=== PATIENT | male | born 1975 | race Hispanic/Latino ===

== ENCOUNTER 2020-09-29 16:32 | Emergency (ER) | payer OTHER ==
[~2020-09-29] VITALS: Ht 170.2 cm; Wt 72.6 kg
[2020-09-29] MEDS ORDERED: HYDROXYZINE HCL25 MG PO (16:49)
[2020-09-29] MEDS ORDERED: OMEPRAZOLE20 MG PO (16:50)
== END 2020-09-29 19:18 | disposition home or self-care (01) ==
LOC: ED 16:32
DX: R10.11 Right upper quadrant pain (principal); K21.9 Gastro-esophageal reflux disease without esophagitis; Z87.891 Personal history of nicotine dependence; Z88.5 Allergy status to narcotic agent; Z79.899 Other long term (current) drug therapy
CPT/HCPCS: 74177; 76705; 80053; 81001; 83690; 85025; 99284-25

== ENCOUNTER 2021-04-15 05:30 | Day surgery (SDC) | payer OTHER ==
[~2021-04-15] VITALS: Ht 170.2 cm; Wt 63.0 kg
[~2021-04-15 05:30] MED LIST: HYDROXYZINE HCL25 MG PO; OMEPRAZOLE20 MG PO
--- NOTE | 2021-04-15 08:32 | NUR ---
04/15/21 0832 Rosibel Burnette 7176 PT ARRIVED TO PACU ON RA, PT AWAKE AND TALKING TO RN. ARABELLA.
--- NOTE | 2021-04-15 09:47 | NUR ---
0935: PT BACK TO DAY SURGERY ROOM 10 FROM PACU VIA STRETCHER. ALERT AND ORIENTED. SYMPTOMATIC WHEN SAT UP IN PACU. VSS, RESP EVEN AND UNLABORED. SECOND LITER BOLUSING. PT REQUESTS TO GET UP TO BR. DANGLES AT THE BEDSIDE AND BECOMES NAUSEOUS, DIZZY AND DIAPHORETIC. PT HELPED TO BEDSIDE COMMODE. EOCI GUARDS AT THE BEDSIDE.
--- NOTE | 2021-04-15 09:53 | NUR ---
PATIENT BACK TO BED FROM BEDSIDE COMMODE. NOTED LOOSE STOOL AND URINE. RESTING COMFORTABLY. CARITOI VIDHI IN ROOM. CALL LIGHT WITHIN REACH.
--- NOTE | 2021-04-15 10:18 | NUR ---
PATINET STATES PAIN IS 10/10. PATIENT STATES PAIN IS TO THE RIGHT OF HIS UMBILICUS AND UPPER ABDOMEN. PAIN IS NOT IMPORVED BY POSITION CHANGES. WILL TALK TO DR. SAWANT WHEN OUT OF SURGERY.
--- NOTE | 2021-04-15 10:24 | NUR ---
PATINET STATES PAIN IS 10/10. PATIENT STATES PAIN IS TO THE RIGHT OF HIS UMBILICUS AND UPPER ABDOMEN. PAIN IS NOT IMPORVED BY POSITION CHANGES. STOMACH IS SOFT ON EXAM. WILL TALK TO DR. SAWANT WHEN OUT OF SURGERY.
--- NOTE | 2021-04-15 10:45 | NUR ---
PATIENT RESTING IN BED. STATES PAIN 10/10 IN HIS UPPER ABDOMEN AND TO THE RIGHRT OF HIS UMBLICUS. STOMACH SOFT ON EXAM. VO GIVEN FOR ANTIEMETIC. WILL TALK TO TALK TO
--- NOTE | 2021-04-15 10:56 | NUR ---
PATIENT GIVEN ANTIEMETIC PER DR. ORDERS. SEE PATIENTS EMAR.
--- NOTE | 2021-04-15 11:51 | NUR ---
PATIENT LAYING ON HIS RIGHT SIDE. STATES PAIN IS 8/10. PATIENT HAD N/V @ 1115 AND STATES HIS NAUSEA IS BETTER NOW. 1 RENZO IN THE ROOM WITH HIM CURRENTLY. WAITING FOR DR. SAWANT.
--- NOTE | 2021-04-15 13:05 | NUR ---
PATIENT LAYING COMFORTABLY IN BED. STILL RATES PAIN 8/10 IN UPPER ABDOMEN AND RIGHT SIDE. PATIENT SEEMS MORE RELAXED. PATIENT AMBULATES TO RESTROOM WITH 1 RN STANDBY. AFTER THE RESTROOM PATIENT RATES HIS PAIN A 7/10. DR SAWANT WILL CHECK ON PATIENT SHORTLY.
--- NOTE | 2021-04-15 13:24 | NUR ---
1310 DR SAWANT TO PATIENTS ROOM. DISCUSSED TREATMENT AND DIET. 1320 DISCHARGE INSTRUCTIONS GIVEN. PATIENT LEFT IN WHEELCHAIR WITH 2 GAURDS.
--- NOTE | 2021-04-18 08:22 | OR ---
[facility] [address] [place], [place] [address] Signed DATE OF OPERATION: 04/15/2021 SURGEON: Sincere Sawant MD PREOPERATIVE DIAGNOSES: 1. Generalized abdominal pain and general fatigue. 2. Elevated fecal calprotectin, elevated calprotectin level (457) and lactoferrin positive. POSTOPERATIVE DIAGNOSES: 1. Normal upper endoscopy except for mild antral gastritis. 2. Moderately severe rectosigmoid inflammation and cecal inflammation with intervening sparing most likely consistent with ulcerative colitis. PROCEDURES: 1. Esophagogastroduodenoscopy with biopsy. 2. Total colonoscopy to cecum with intubation of ileum and biopsies. ANESTHESIA: Intravenous sedation fentanyl 200 mcg and Versed 7 mg. INDICATION: This 45-year-old man is a patient of Georgie Restrepo at [facility]. He was seen by me in January with generalized abdominal pain. He had been evaluated in the emergency room in September 2020 with right upper abdominal pain radiating to the back. Biliary evaluation was negative. A CCK HIDA was performed, he told me, but I do not know the results. A CT scan was additionally negative. He was treated with PPI medication and Bentyl. These medicines were of no benefit to him. He has no family history of colon cancer or inflammatory bowel disease. He is admitted at this time to undergo upper endoscopy as well as colonoscopy to better characterize the problem. His fecal calprotectin level was 457 (normal 50 or less). He does not have dominant problem with diarrhea or blood per rectum, though he has had weight loss. GS: Upper endoscopy showed mild antral gastritis. CLOtest was negative. Biopsies were taken throughout including those to evaluate for celiac disease. Electronically Signed By: SINCERE SAWANT MD 04/18/21 0822 PATIENT NAME: MU NELSON OPERATIVE REPORT DATE OF : 75 REPORT #: [id number] PHYSICIAN: SINCERE SAWANT MD PCP: ALEJANDRA CANTOR MD REPORT IS CONFIDENTIAL AND NOT TO BE RELEASED WITHOUT AUTHORIZATION [facility] [address], [place] [address] Signed Colonoscopy was highly revealing; he had marked rectosigmoid inflammatory changes consistent with ulcerative colitis. It appeared to be clinical sparing of proximal left colon and transverse colon, but marked inflammation once again in the cecal area. Intubation of the ileum showed no obvious ileitis. DESCRIPTION OF PROCEDURE: The patient was brought to the endoscopy suite and given topical lidocaine hypopharyngeal anesthesia and placed in lateral decubitus position. He was given intravenous sedation to the point of slurred speech and nystagmus with full cardiopulmonary monitoring. A bite block was placed. An Olympus video upper endoscope was passed in the hypopharynx. The vocal cords appeared normal. The scope was advanced to the esophagus throughout its length it was normal. Scope was advanced to the stomach and rugal folds were normal. There was mild inflammatory change of the antrum, but not much really. The pylorus was normal, scope was passed through into the duodenum, which was normal. Biopsies were taken of the 2nd, 3rd, and bulbar portions and the scope was withdrawn to the antrum where biopsies were taken of the antrum for both THA and pathologic testing. Retroflexed view showed a reasonably good flap valve. The proximal stomach was otherwise normal. The scope was withdrawn into the distal esophagus and although mucosa appeared normal, biopsies were obtained as were biopsies of the mid esophagus. The scope was withdrawn. The vocal cords were found to be normal. Plans were then made for colonoscopy. Additional sedation was given and digital rectal examination performed. An Olympus video colonoscope was passed in the rectum, immediately noted was significant rectal inflammation. The scope was advanced throughout the colon showing marked rectosigmoid inflammation, but less inflammation in the left colon and little if any noted in the transverse or right colon. Upon approaching the cecum, however, there was inflammatory change once again. Cecal biopsies were obtained. Various manipulations were undertaken to allow for intubation of the ileum. In general, the ileum appeared normal, though multiple biopsies were taken to ascertain there was no sign of inflammation there histologically. The scope was withdrawn and examination throughout confirmed the aforementioned findings. Biopsies were taken through the right colon, transverse, left, sigmoid and rectosigmoid. The scope was removed and the patient was taken to the recovery room in good condition. CONCLUDING DIAGNOSIS: Most likely this represents ulcerative colitis. The ilium appeared spared clinically. It is peculiar that the transverse and left colon were clinically not inflamed however. PLAN: We will initiate Flagyl 250 mg p.o. t.i.d. as well as prednisone 40 mg p.o. daily tapering 10 mg every two weeks, initiate also mesalamine 800 mg p.o. t.i.d. and continued use of PPI medication as ulcer prophylaxis. We will see him back in next [facility] to assess his response to therapy and review his pathology report. Electronically Signed By: SINCERE SAWANT MD 04/18/21 0822 PATIENT NAME: MU NELSON OPERATIVE REPORT DATE OF : 75 REPORT #: [id number] PHYSICIAN: SINCERE SAWANT MD PCP: ALEJANDRA CANTOR MD REPORT IS CONFIDENTIAL AND NOT TO BE RELEASED WITHOUT AUTHORIZATION [place] [id number] Signed MD WENDY Damon/MODL /[id number] cc: MERVAT Anidno Copies: MICHAEL RESTREPO ~ Electronically Signed By: SINCERE SAWANT MD 04/18/21821 PATIENT NAME: MU NELSON OPERATIVE REPORT DATE OF : 75 REPORT #: [id number] PHYSICIAN: SINCERE SAWANT MD PCP: ALEJANDRA CANTOR MD REPORT IS CONFIDENTIAL AND NOT TO BE RELEASED WITHOUT AUTHORIZATION
--- NOTE | 2021-04-20 15:16 | PATH ---
[facility] [address] [facility] [place], [place] [address] Signed SPECIMEN(S): A DUODENAL BIOPSY SPECIMEN(S): B ANTRUM BIOPSY SPECIMEN(S): C LOWER ESOPHAGUS BIOPSY SPECIMEN(S): D MIDDLE ESOPHAGUS BIOPSY SPECIMEN(S): E CECUM BIOPSY SPECIMEN(S): F TERMINAL ILEUM BIOPSY SPECIMEN(S): G ASCENDING RIGHT COLON BIOPSY SPECIMEN(S): H TRANSVERSE COLON BIOPSY SPECIMEN(S): I DESCENDING/LEFT COLON BIOPSY SPECIMEN(S): J SIGMOID COLON BIOPSY SPECIMEN(S): K COLON BIOPSY AT 15 CM SPECIMEN(S): L RECTAL BIOPSY SPECIMEN SOURCE: A. DUODENAL BIOPSY B. ANTRUM BIOPSY C. LOWER ESOPHAGUS BIOPSY D. MIDDLE ESOPHAGUS BIOPSY E. CECUM BIOPSY F. TERMINAL ILEUM BIOPSY G. ASCENDING RIGHT COLON BIOPSY H. TRANSVERSE COLON BIOPSY I. DESCENDING/LEFT COLON BIOPSY J. SIGMOID COLON BIOPSY K. COLON BIOPSY AT 15 CM L. RECTAL BIOPSY CLINICAL HISTORY: Esophagogastroduodenoscopy, colonoscopy. Upper abdominal pain, elevated fecal calprotectin. MICROSCOPIC DESCRIPTION: Histologic sections of all submitted blocks are examined by light microscopy. These findings, together with the gross examination, support the pathologic diagnosis. FINAL PATHOLOGIC DIAGNOSIS: A. Duodenum, biopsy: - No significant histopathology. B. Antrum, biopsy: - No significant histopathologic alterations. C. Lower esophagus, biopsy: PATIENT NAME: MU NELSON PATHOLOGY DATE OF : 75 REPORT #: [id number] PHYSICIAN: JESSICA PATHOLOGY PCP: ALEJANDRA CANTOR MD REPORT IS CONFIDENTIAL AND NOT TO BE RELEASED WITHOUT AUTHORIZATION [facility] [address] [place], [place] [address] Signed - Portions of unremarkable squamous mucosa. D. Middle esophagus, biopsy: - Portions of unremarkable squamous mucosa. E. Colon, cecum, biopsy: - Acute colitis (see comment). F. Terminal ileum, biopsy: - Focal acute ileitis. G. Colon, right ascending, biopsy: - No significant histopathology. H. Colon, transverse, biopsy: - No significant histopathology. I. Colon, descending/left, biopsy: - No significant histopathology. J. Colon, sigmoid, biopsy: - No significant histopathology. K. Colon, 15 cm, biopsy: - Acute colitis (see comment). L. Rectum, biopsy: - Acute colitis (see comment). COMMENT: (A) The sections from the duodenal biopsy show portions of duodenal mucosa with long fingerlike villi. There is no villous atrophy, crypt hyperplasia or intraepithelial lymphocytosis making a diagnosis of celiac disease unlikely. There is no evidence of peptic duodenitis, microorganisms, abnormal infiltrates or neoplasia. (B) The sections through the gastric biopsies show fragments of histologically unremarkable antral mucosa. There is no evidence of acute or chronic inflammation. There is no evidence of H. pylori, intestinal metaplasia, abnormal infiltrates or neoplasia. (C) (D) The biopsy shows normal appearing squamous epithelium. There is no evidence of acute or chronic inflammation. (E) This colon biopsy contains a neutrophilic infiltrate. The infiltrate involves both glands and stroma. There is an increase in the number of mononuclear cells in the lamina propria. There is no evidence of architecturally damaged mucosa or crypt distortion. Cryptitis is present, but no crypt abscess is identified. The pattern suggests the possibility of an acute self-limited or infectious colitis, although an early evolving inflammatory bowel disease cannot be completely excluded. An abundance of eosinophils is also identified. No granulomas are identified. Please correlate these PATIENT NAME: MU NELSON PATHOLOGY DATE OF : 75 REPORT #: [id number] PHYSICIAN: JESSICA BONILLA PCP: ALEJANDRA CANTOR MD REPORT IS CONFIDENTIAL AND NOT TO BE RELEASED WITHOUT AUTHORIZATION [facility] [address] [place], [place] [address] Signed findings with the clinical presentation. (F) The sections from the terminal ileum show an architecturally normal mucosa. Focally, there is an increase in the number of mononuclear cells in the lamina propria. There is a focal neutrophilic infiltrate involving the villi. Changes such as this can be seen in patients with IBD, infections, ischemia or on certain medications. No granulomas or abnormal organisms are seen. (G) (H) (I) (J) The sections from the specimen contain architecturally normal colonic mucosa without crypt distortion. There is no acute or chronic inflammation. There is no evidence of microscopic colitis. There are no abnormal organisms or infiltrates. There are no polyps or neoplasms. (K) (L) This colon biopsy contains a neutrophilic infiltrate. The infiltrate involves both glands and stroma. There is an increase in the number of mononuclear cells in the lamina propria. There is no evidence of architecturally damaged mucosa or crypt distortion. Cryptitis is present, but no crypt abscess is identified. The pattern suggests the possibility of an acute self-limited or infectious colitis, although an early evolving inflammatory bowel disease cannot be completely excluded. An abundance of eosinophils is also identified. No granulomas are identified. Please correlate these findings with the clinical presentation. TWK:[id number] GROSS DESCRIPTION: Twelve specimens are received in twelve containers, labeled "MG." A. The specimen, labeled "MG, duodenal," is received in formalin and consists of three marrero soft tissue fragments that measure 0.3 cm in greatest dimension. The specimen is entirely submitted in cassette (A1). B. The specimen, labeled "MG, antrum," is received in formalin and consists of two marrero soft tissue fragments that measure 0.3 cm in greatest dimension. The specimen is entirely submitted in cassette (B1). C. The specimen, labeled "MG, distal esophagus," is received in formalin and consists of one marrero soft tissue fragment that measures 0.3 cm in greatest dimension. The specimen is entirely submitted in cassette (C1). D. The specimen, labeled "MG, mid esophagus," is received in formalin and consists of one marrero soft tissue fragment that measures 0.2 cm in greatest dimension. The specimen is entirely submitted in PATIENT NAME: MU NELSON PATHOLOGY DATE OF : 75 REPORT #: [id number] PHYSICIAN: JESSICA BONILLA PCP: ALEJANDRA CANTOR MD REPORT IS CONFIDENTIAL AND NOT TO BE RELEASED WITHOUT AUTHORIZATION [facility] [address] [place] [id number] Signed cassette (D1). E. The specimen, labeled "MG, cecal," is received in formalin and consists of three marrero soft tissue fragments that measure 0.3 cm in greatest dimension. The specimen is entirely submitted in cassette (E1). F. The specimen, labeled "MG, terminal ileum," is received in formalin and consists of three marrero soft tissue fragments that measure 0.3 cm in greatest dimension. The specimen is entirely submitted in cassette (F1). G. The specimen, labeled "MG right colon," is received in formalin and consists of two marrero soft tissue fragments that measure 0.2-0.3 cm in greatest dimension. The specimen is entirely submitted in cassette (G1). H. The specimen, labeled "MG, transverse colon," is received in formalin and consists of two marrero soft tissue fragments that measure 0.3 cm in greatest dimension. The specimen is entirely submitted in cassette (H1). I. The specimen, labeled "MG, left colon," is received in formalin and consists of one marrero soft tissue fragment that measures 0.3 cm in greatest dimension. The specimen is entirely submitted in cassette (I1). J. The specimen, labeled "MG, sigmoid," is received in formalin and consists of one marrero soft tissue fragment that measures 0.3 cm in greatest dimension. The specimen is entirely submitted in cassette (J1). K. The specimen, labeled "MG, 15 cm," is received in formalin and consists of two marrero soft tissue fragments that measure 0.3 cm in greatest dimension. The specimen is entirely submitted in cassette (K1). L. The specimen, labeled "MG, rectum," is received in formalin and consists of four marrero soft tissue fragments that measure 0.3 cm in greatest dimension. The specimen is entirely submitted in cassette (L1). AT (under the direct supervision of a pathologist) The Gross Description was prepared using a voice recognition system. The report was reviewed for accuracy; however, sound-alike word errors, addition and/or deletions may occur. If there is any question about this report, please contact Client Services. PATIENT NAME: MU NELSON PATHOLOGY DATE OF : 75 REPORT #: [id number] PHYSICIAN: JESSICA PATHOLOGY PCP: ALEJANDRA CANTOR MD REPORT IS CONFIDENTIAL AND NOT TO BE RELEASED WITHOUT AUTHORIZATION [facility] [address] [facility] [place] [address] Signed PERFORMING LABORATORY: The technical component was performed by [employer], [address] [place] [address] (Traffic Recorder: Loren Hernandez MD; CLIA# [id number]). [facility], [address] [place] [address]. Diagnostician: Lucian Lara MD Pathologist Electronically Signed 04/20/2021 Copies: ~ PATIENT NAME: MU NELSON PATHOLOGY DATE OF : 75 REPORT #: [id number] PHYSICIAN: JESSICA BONILLA PCP: ALEJANDRA CANTOR MD REPORT IS CONFIDENTIAL AND NOT TO BE RELEASED WITHOUT AUTHORIZATION
== END 2021-04-15 13:25 | disposition home or self-care (01) ==
LOC: OPS 05:30 → DS 05:30 → OPS 06:45
PROVIDERS: ATTEND Surgery
PROC: 0DB68ZZ Excision of Stomach, Via Natural or Artificial Opening Endoscopic (ICD-10-PCS; principal; 2021-04-15 06:45)
PROC: 0DBN8ZZ Excision of Sigmoid Colon, Via Natural or Artificial Opening Endoscopic (ICD-10-PCS; 2021-04-15 06:45)
DX: K52.9 Noninfective gastroenteritis and colitis, unspecified (principal)
CPT/HCPCS: 80053; 85025; 99153; G0500; J2250; J2550; J3010; J7121